=== PATIENT | female | born 1995 | race Caucasian/White ===

== ENCOUNTER 2024-04-02 11:23 | Observation (INO) | payer BC, SELFPAY ==
[2024-04-02 11:33] VITALS: BP 138/89; BMI 24.3
[2024-04-02 12:05] LABS: % Basophils 0.3 % (0-2); % Eosinophils 0.7 % (0-6); % Immature Granulocytes 1.6 % (0-0.5); % Lymphocytes 19.8 % (20.5-51.1); % Monocytes 9.8 % (1.7-9.3); % Neutrophils 67.8 % (42.2-75.2); Absolute Eosinophils 0.1 10^3/uL (0-0.7); Absolute Immature Granulocytes 0.2 10^3/uL (0-0.05); Absolute Lymphocytes 1.9 10^3/uL (1.2-3.4); Absolute Monocytes 0.9 10^3/uL (0.1-0.6); Absolute Neutrophils 6.5 10^3/uL (1.4-6.5); Hematocrit 33.8 % (37.0-47.0); Hemoglobin 11.7 g/dL (12.0-16.0); Mean Corp Hgb Conc. 34.6 g/dL (33.0-37.0); Mean Corpuscular Hgb 28.7 pg (27.0-31.0); Mean Corpuscular Volume 82.8 fL (81.0-99.0); Mean Platelet Volume 10.3 fL (7.4-10.4); Nucleated Red Blood Cells % 0 %; Platelet Count 193 10^3/uL (130-400); Red Blood Cell Count 4.08 10^6/uL (4.20-5.40); Red Cell Dist. Width 13.5 % (11.5-14.5); White Blood Cell Count 9.5 10^3/uL (4.8-10.8)
[2024-04-02 12:22] LABS: ALT (SGPT) 17 U/L (0-35); AST (SGOT) 20 U/L (14-36); Albumin 3.9 g/dl (3.5-5.0); Alkaline Phosphatase 73 U/L (38-126); Blood Urea Nitrogen 3 mg/dl (7-17); Calcium 9.6 mg/dl (8.4-10.2); Carbon Dioxide 24 mmol/L (22-30); Chloride 105 mmol/L (98-107); Estimated Creatinine Clearance 124 ml/min; Glucose 81 mg/dl (70-99); Potassium 3.7 mmol/L (3.5-5.1); Sodium 132 mmol/L (135-145); Total Bilirubin 0.4 mg/dl (0.2-1.3); Total Protein 6.5 g/dl (6.3-8.2); eGFR > 60.00
[2024-04-02 12:34] LABS: Protein/creatinine Ratio 1.5; Urine Protein 21 mg/dl
== END 2024-04-02 13:03 | disposition home or self-care (01) ==
LOC: LDRP 11:23
PROVIDERS: ADMITTING PHYSICIAN Obstetrics & Gynecology
DX: O10.013 Pre-existing essential hypertension complicating pregnancy, third trimester (principal); Z3A.30 30 weeks gestation of pregnancy; N80.9 Endometriosis, unspecified; K58.9 Irritable bowel syndrome, unspecified; G43.909 Migraine, unspecified, not intractable, without status migrainosus; O99.353 Diseases of the nervous system complicating pregnancy, third trimester; O99.343 Other mental disorders complicating pregnancy, third trimester; F32.A Depression, unspecified; F41.9 Anxiety disorder, unspecified; Z79.82 Long term (current) use of aspirin; Z87.440 Personal history of urinary (tract) infections; Z88.0 Allergy status to penicillin
CPT/HCPCS: 80053; 82570; 84156; 85025; G0378

== ENCOUNTER → 2024-04-22 14:58 | Outpatient (REF) | payer BC, SELFPAY | LOC: PNTC 14:58 | PROVIDERS: ATTENDING PHYSICIAN Obstetrics & Gynecology | DX: O10.019 Pre-existing essential hypertension complicating pregnancy, unspecified trimester (principal) | CPT/HCPCS: 59025 ==

== ENCOUNTER → 2024-04-29 15:27 | Outpatient (REF) | payer BC, SELFPAY | LOC: PNTC 15:27 | PROVIDERS: ATTENDING PHYSICIAN Obstetrics & Gynecology | DX: O10.019 Pre-existing essential hypertension complicating pregnancy, unspecified trimester (principal) | CPT/HCPCS: 59025 ==

== ENCOUNTER 2024-05-21 07:31 | Inpatient (IN) | payer BC, SELFPAY ==
[2024-05-20 16:19] VITALS: BP 141/85; BMI 25.6
[2024-05-20 16:27] LABS: Urine Albumin Negative (Neg - Trace); Urine Bilirubin Negative (Negative); Urine Character Clear (Clear); Urine Color Yellow; Urine Glucose Negative (Negative); Urine Ketone Negative (Negative); Urine Leukocyte Trace (Negative); Urine Nitrite Negative (Negative); Urine Occult Blood Negative (Negative); Urine Specific Gravity 1.015 (<1.030); Urine Urobilinogen Negative (Neg - 1+)
[2024-05-20 16:29] LABS: % Basophils 0.3 % (0-2); % Eosinophils 0.7 % (0-6); % Immature Granulocytes 1.1 % (0-0.5); % Lymphocytes 21.9 % (20.5-51.1); % Monocytes 11.3 % (1.7-9.3); % Neutrophils 64.7 % (42.2-75.2); Absolute Eosinophils 0.1 10^3/uL (0-0.7); Absolute Immature Granulocytes 0.1 10^3/uL (0-0.05); Absolute Lymphocytes 2.1 10^3/uL (1.2-3.4); Absolute Monocytes 1.1 10^3/uL (0.1-0.6); Absolute Neutrophils 6.2 10^3/uL (1.4-6.5); Hematocrit 33.2 % (37.0-47.0); Hemoglobin 10.7 g/dL (12.0-16.0); Mean Corp Hgb Conc. 32.2 g/dL (33.0-37.0); Mean Corpuscular Hgb 25.8 pg (27.0-31.0); Mean Corpuscular Volume 80.2 fL (81.0-99.0); Mean Platelet Volume 11.4 fL (7.4-10.4); Nucleated Red Blood Cells % 0 %; Platelet Count 209 10^3/uL (130-400); Red Blood Cell Count 4.14 10^6/uL (4.20-5.40); Red Cell Dist. Width 14.1 % (11.5-14.5); White Blood Cell Count 9.6 10^3/uL (4.8-10.8)
[2024-05-20 16:45] LABS: ALT (SGPT) 13 U/L (0-35); AST (SGOT) 22 U/L (14-36); Albumin 3.6 g/dl (3.5-5.0); Alkaline Phosphatase 103 U/L (38-126); Blood Urea Nitrogen 4 mg/dl (7-17); Calcium 9.9 mg/dl (8.4-10.2); Carbon Dioxide 22 mmol/L (22-30); Chloride 105 mmol/L (98-107); Estimated Creatinine Clearance 124 ml/min; Glucose 89 mg/dl (70-99); Sodium 134 mmol/L (135-145); Total Bilirubin 0.5 mg/dl (0.2-1.3); Total Protein 6.2 g/dl (6.3-8.2); eGFR > 60.00
[2024-05-20 16:50] LABS: Urine Bacteria Many (Negative); Urine Red Blood Cell 0-2 /HPF (0-2); Urine Squamous Cell >30 /LPF (Few); Urine White Cell 0-2 /HPF (0-5)
[2024-05-20 16:54] LABS: Protein/creatinine Ratio 0.5; Urine Protein 25 mg/dl
[2024-05-20] MEDS: TYLENOL 1000 MG PO (20:03)
[2024-05-20] MEDS: CYTOTEC 25 MICROGRAM VAG (21:38)
[2024-05-21] MEDS: CYTOTEC 50 MICROGRAM PO ×2 (03:07→07:29)
[2024-05-21] MEDS: LR 1000 IV ×3 (09:00→20:48)
[2024-05-21] MEDS: CYTOTEC PO ×3 (14:07→20:16)
[2024-05-21] MEDS: PHENERGAN 50.5 MG IV ×2 (15:46→20:48)
[2024-05-21] MEDS: MORPHINE SULFATE 2 MG IV ×2 (15:46→20:48)
[2024-05-21] MEDS: PITOCIN 30 UNITS/NSS 500 ML IV (16:51)
[2024-05-21] MEDS: PEPCID 40 MG PO (20:29)
[2024-05-22] MEDS: FENTANYL/BUPIVACAINE 100 EPIDURAL (04:45)
[2024-05-22] MEDS: SUBLIMAZE 100 MCG EPIDURAL (04:45)
[2024-05-22] MEDS: ANCEF 10 IV (05:05)
[2024-05-22] MEDS: MOTRIN 600 MG PO ×2 (14:39→20:25)
[2024-05-22] MEDS: TYLENOL 650 MG PO ×2 (14:39→20:25)
[2024-05-22] MEDS: SENOKOT-S 1 TABLET PO (14:39)
[2024-05-23] MEDS: TYLENOL 650 MG PO ×3 (06:14→18:13)
[2024-05-23] MEDS: MOTRIN 600 MG PO ×3 (06:15→18:13)
[2024-05-23 06:20] LABS: Hematocrit 26.1 % (37.0-47.0); Hemoglobin 8.9 g/dL (12.0-16.0)
[2024-05-23] MEDS: FEOSOL 325 MG PO ×2 (12:03→19:55)
[2024-05-23] MEDS: SENOKOT-S 1 TABLET PO (12:03)
[2024-05-23] MEDS: PEPCID PO (12:04)
[2024-05-24] MEDS: TYLENOL 650 MG PO (04:43)
[2024-05-24] MEDS: MOTRIN 600 MG PO (04:43)
[2024-05-24] MEDS: FEOSOL 325 MG PO (08:37)
[2024-05-24] MEDS: PEPCID 20 MG PO (08:37)
[2024-05-25 09:57] LABS: Syphilis/T. pallidum Ab Reflex Negative (Negative)
== END 2024-05-24 11:21 | disposition home or self-care (01) | DRG 807 ==
LOC: LDRP 07:31
PROVIDERS: Obstetrics & Gynecology; ADMITTING PHYSICIAN Obstetrics & Gynecology
PROC: 3E0P7VZ Introduction of Hormone into Female Reproductive, Via Natural or Artificial Opening (ICD-10-PCS; 2024-05-20)
PROC: 0U7C7ZZ Dilation of Cervix, Via Natural or Artificial Opening (ICD-10-PCS; 2024-05-21)
PROC: 10D07Z6 Extraction of Products of Conception, Vacuum, Via Natural or Artificial Opening (ICD-10-PCS; 2024-05-22)
PROC: 10907ZC Drainage of Amniotic Fluid, Therapeutic from Products of Conception, Via Natural or Artificial Opening (ICD-10-PCS; 2024-05-22)
PROC: 6A550ZT Pheresis of Cord Blood Stem Cells, Single (ICD-10-PCS; 2024-05-22)
DX: O11.4 Pre-existing hypertension with pre-eclampsia, complicating childbirth (principal); Z37.0 Single live birth; O10.02 Pre-existing essential hypertension complicating childbirth; Z3A.36 36 weeks gestation of pregnancy; Z88.0 Allergy status to penicillin; O99.344 Other mental disorders complicating childbirth; F32.A Depression, unspecified; F41.9 Anxiety disorder, unspecified; G43.909 Migraine, unspecified, not intractable, without status migrainosus; Z82.49 Family history of ischemic heart disease and other diseases of the circulatory system; Z87.442 Personal history of urinary calculi; N80.9 Endometriosis, unspecified
CPT/HCPCS: 88307; 80053; 81003; 81015; 82570; 84156; 85014; 85018; 85025; 86780; 86850; 86900; 86901

== ENCOUNTER 2024-05-26 20:22 | Observation (INO) | payer BC, SELFPAY ==
[2024-05-26 20:29] VITALS: BP 150/88; BMI 24.9
[2024-05-26 20:55] LABS: % Basophils 0.5 % (0-2); % Eosinophils 2.2 % (0-6); % Immature Granulocytes 0.9 % (0-0.5); % Lymphocytes 28.6 % (20.5-51.1); % Monocytes 9.7 % (1.7-9.3); % Neutrophils 58.1 % (42.2-75.2); Absolute Basophils 0.1 10^3/uL (0-0.2); Absolute Eosinophils 0.2 10^3/uL (0-0.7); Absolute Immature Granulocytes 0.1 10^3/uL (0-0.05); Absolute Lymphocytes 2.8 10^3/uL (1.2-3.4); Absolute Neutrophils 5.7 10^3/uL (1.4-6.5); Hematocrit 29.9 % (37.0-47.0); Hemoglobin 10.2 g/dL (12.0-16.0); Mean Corp Hgb Conc. 34.1 g/dL (33.0-37.0); Mean Corpuscular Hgb 26.4 pg (27.0-31.0); Mean Corpuscular Volume 77.5 fL (81.0-99.0); Nucleated Red Blood Cells % 0 %; Platelet Count 284 10^3/uL (130-400); Red Blood Cell Count 3.86 10^6/uL (4.20-5.40); Red Cell Dist. Width 15.1 % (11.5-14.5); White Blood Cell Count 9.8 10^3/uL (4.8-10.8)
[2024-05-26 21:11] LABS: ALT (SGPT) 37 U/L (0-35); AST (SGOT) 47 U/L (14-36); Albumin 3.8 g/dl (3.5-5.0); Alkaline Phosphatase 92 U/L (38-126); Blood Urea Nitrogen 16 mg/dl (7-17); Calcium 9.4 mg/dl (8.4-10.2); Carbon Dioxide 21 mmol/L (22-30); Chloride 106 mmol/L (98-107); Estimated Creatinine Clearance 119 ml/min; Glucose 88 mg/dl (70-99); Potassium 4.1 mmol/L (3.5-5.1); Sodium 138 mmol/L (135-145); Total Bilirubin 0.5 mg/dl (0.2-1.3); Total Protein 6.5 g/dl (6.3-8.2); eGFR > 60.00
[2024-05-26] MEDS: TYLENOL 1000 MG PO (21:13)
[2024-05-26] MEDS: TRANDATE 20 MG IV (21:14)
[2024-05-26] MEDS: MOTRIN 600 MG PO (21:14)
[2024-05-26] MEDS: MAGNESIUM SULFATE 100 IV (21:54)
[2024-05-26] MEDS: MAGNESIUM SULFATE 40 GRAM 1000 IV (22:16)
[2024-05-27] MEDS: MOTRIN 600 MG PO ×2 (05:45→16:33)
[2024-05-27] MEDS: TYLENOL 1000 MG PO (05:45)
[2024-05-27] MEDS: TRANDATE 100 MG PO (07:32)
[2024-05-27 09:23] LABS: % Basophils 0.5 % (0-2); % Eosinophils 1.7 % (0-6); % Immature Granulocytes 1.1 % (0-0.5); % Lymphocytes 21.6 % (20.5-51.1); % Monocytes 8.4 % (1.7-9.3); % Neutrophils 66.7 % (42.2-75.2); Absolute Eosinophils 0.1 10^3/uL (0-0.7); Absolute Immature Granulocytes 0.1 10^3/uL (0-0.05); Absolute Lymphocytes 1.8 10^3/uL (1.2-3.4); Absolute Monocytes 0.7 10^3/uL (0.1-0.6); Absolute Neutrophils 5.4 10^3/uL (1.4-6.5); Hematocrit 34.6 % (37.0-47.0); Hemoglobin 11.1 g/dL (12.0-16.0); Mean Corp Hgb Conc. 32.1 g/dL (33.0-37.0); Mean Corpuscular Hgb 25.9 pg (27.0-31.0); Mean Corpuscular Volume 80.7 fL (81.0-99.0); Mean Platelet Volume 10.3 fL (7.4-10.4); Nucleated Red Blood Cells % 0 %; Platelet Count 256 10^3/uL (130-400); Red Blood Cell Count 4.29 10^6/uL (4.20-5.40); Red Cell Dist. Width 15.3 % (11.5-14.5); White Blood Cell Count 8.1 10^3/uL (4.8-10.8)
[2024-05-27 09:37] LABS: ALT (SGPT) 39 U/L (0-35); AST (SGOT) 37 U/L (14-36); Magnesium 6.5 mg/dl (1.6-2.3)
[2024-05-27] MEDS: FIORICET 2 TAB PO (12:59)
== END 2024-05-27 19:38 | disposition home or self-care (01) ==
LOC: LDRP 20:22
PROVIDERS: ADMITTING PHYSICIAN Obstetrics & Gynecology
DX: O11.5 Pre-existing hypertension with pre-eclampsia, complicating the puerperium (principal); O10.03 Pre-existing essential hypertension complicating the puerperium; R51.9 Headache, unspecified; Z88.0 Allergy status to penicillin
CPT/HCPCS: 80053; 83735; 84450; 84460; 85025